=== PATIENT | female | born 2005 | race Caucasian/White ===

== ENCOUNTER 2024-08-25 07:49 | Emergency (ER) | payer MEDICAID, SELFPAY ==
[2024-08-25 07:50] VITALS: BMI 20.5
--- NOTE | 2024-08-25 08:02 | PD.EDRME ---
Rapid Medical Screening Exam RME Arrival date/time: 08/25/24 07:49 19-year-old female presents to the emergency department with complaints of epigastric abdominal pain x 1 day. I have greeted and performed a focused initial assessment of this patient. Initial appropriate labs ordered at this time. A comprehensive ED assessment and evaluation of the patient and analysis of all test and completion of medical decision making process will be conducted by additional ED provider. Chief Complaint: Abdominal Pain Time Seen by Provider: 08/25/24 07:54
--- NOTE | 2024-08-25 08:04 | XR_ITS ---
Examination: Abdomen sonogram, Limited Date and time of exam: August 25, 2024 0839 hrs. Indications: Epigastric pain and vomiting onset today Technique: Real-time mars scale transabdominal sonographic images of the upper abdomen obtained. Findings: Normal gallbladder Normal common bile duct 0.3 cm Pancreatic head 1.9 cm Liver normal size fatty infiltration Normal hepatopedal portal venous flow Patent IVC Impression: Normal gallbladder Fatty liver
[2024-08-25 08:06] VITALS: BP 125/64; PULSE 100; RESP 19; TEMP 36.4; O2SAT 98
[2024-08-25] MEDS: FAMOTIDINE 20 MG TABLET 40 MG PO (08:19)
[2024-08-25] MEDS: MG HYD/AL HYD/SIME (Maalox Reg) SUSP 30 ML UDC PO (08:20)
[2024-08-25] MEDS: LIDOCAINE VISCOUS 2% 15 ML UDC PO (08:20)
[2024-08-25 09:32] LABS: Collection Type, Urine Clean Catch
[2024-08-25 09:46] LABS: Basophils # (Auto) 0.1 Thou/mm3 (0.0-0.2); Basophils % (Auto) 1 % (0-2.5); Eosinophils % (Auto) 0 % (0-10); Hematocrit 42.9 % (36.0-46.0); Immature Granulocytes % (Auto) 1 % (0-0); Immature Granulocytes Auto 0.05 Thou/mm3 (0.00-0.00); Lymphocytes # (Auto) 0.5 Thou/mm3 (1.0-4.8); Lymphocytes % (Auto) 4 % (10-50); Mean Corpuscular Hemoglobin 35.7 pg (25.0-35.0); Mean Corpuscular Volume 102 fL (80-100); Monocytes # (Auto) 0.4 Thou/mm3 (0.0-0.8); Monocytes % (Auto) 3 % (0-12); Neutrophils # (Auto) 10.1 Thou/mm3 (1.8-7.7); Neutrophils % (Auto) 91 % (37-80); Nucleated Red Blood Cell % 0 /100 WBC (0); Platelet Count 242 Thou/mm3 (140-440); RDW Standard Deviation 47.9 fL (36.4-46.3); White Blood Count 11.1 Thou/mm3 (4.5-11.0)
[2024-08-25 09:50] LABS: Bilirubin,Urine Negative (Negative); Blood,Urine Trace (Negative); Clarity,Urine Clear (Clear/Hazy); Color,Urine Yellow (Lt Yel-Yel); Glucose, Urine Negative (Negative); Ketones,Urine 4+ (Negative); Leukocyte Esterase,Urine Negative (Negative); Nitrite,Urine Negative (Negative); PH,Urine 6.5 (5.0-7.0); Protein,Urine 3+ (Neg - Trace); RBC,Urine 3 /hpf (0-3); Specific Gravity,Urine 1.026 (1.001-1.035); Squamous Epithelial Cell,Urine < 1 /hpf (0-5); Urobilinogen,Urine Negative mg/dL (0.0-1.0); WBC,Urine 1 /hpf (0-5)
[2024-08-25 09:57] LABS: Alanine Aminotransferase 133 U/L (10-49); Albumin, Serum 5.5 gm/dL (3.5-5.0); Albumin/Globulin Ratio 2.1 (1.2-2.2); Alcohol, Blood Medical 248.4 mg/dL (0-10.0); Alkaline Phosphatase 69 U/L (46-116); Anion Gap 23 (7-16); Aspartate Amino Transferase 252 U/L (0-34); BUN/Creatinine Ratio 9 Ratio (12-20); Bilirubin,Total 1.3 mg/dL (0.3-1.2); Blood Urea Nitrogen 6 mg/dL (9-23); Calcium 10.3 mg/dL (8.3-10.6); Calcium (Corrected) 10.3 mg/dL (8.5-10.1); Carbon Dioxide 20.2 mMol/L (20.0-31.0); Chloride 100 mMol/L (98-107); Creatinine (Component) 0.7 mg/dL (0.6-1.3); Estimated Creatinine Clearance 110.2 mL/min (>60); Globulin 2.6 gm/dL (2.3-3.5); Glucose 123 mg/dL (74-106); Lipase 33 U/L (12-53); Osmolality,Calculated 283 (275-295); Potassium 3.7 mMol/L (3.4-5.1); Sodium 143 mMol/L (136-145); Total Protein 8.1 gm/dL (5.7-8.2); eGFR > 60 See Note
[2024-08-25 10:01] LABS: HCG Qualitative,Urine Negative
[2024-08-25 10:13] LABS: Amphetamine/Methamp Scrn,U Negative (Negative); Barbiturate Screen,Urine Negative (Negative); Benzodiazepines Screen,Urine Negative (Negative); Benzoylecgonine Screen, Ur Negative (Negative); Fentanyl Screen,Urine Negative (Negative); Opiate Screen,Urine Negative (Negative); THC Screen,Urine Positive (Negative)
--- NOTE | 2024-08-25 10:43 | EDNOTE_ITS ---
ED Alcohol RME/HPI General Chief Complaint: Abdominal Pain Stated Complaint: UPPER ABD PAIN WITH VOMITING Time Seen by Provider: 08/25/24 07:54 Arrival date/time: 08/25/24 07:49 RME / HPI RME / HPI narrative: 08/25/24 07:49 19-year-old female presents to the emergency department with complaints of epigastric abdominal pain x 1 day. I have greeted and performed a focused initial assessment of this patient. Initial appropriate labs ordered at this time. A comprehensive ED assessment and evaluation of the patient and analysis of all test and completion of medical decision making process will be conducted by additional ED provider. DR NYLA LYNCH ED EVALUATION Patient is a 19 year old female presenting to the ED complaining of nausea,vomiting and abdominal pain since last night. Patient endorses arijuana and heavy alcohol use last night. Denies fevers, chills, diarrhea, constipation, urinary symptoms. Patient does not rate or describe pain at this time. Denies further medical history at this time. Related Data Previous Rx's ?Medication ?Instructions ?Recorded ondansetron HCl 4 mg tablet 4 mg PO Q6H #30 tabs 11/07/20 (Zofran) ondansetron 4 mg disintegrating 4 mg PO Q8H PRN nausea and 05/24/22 tablet vomiting #14 tabs Allergies Allergy/AdvReac Type Severity Reaction Status Date / Time No Known Allergies Allergy Verified 08/25/24 07:51 Review of Systems Review of Systems Narrative Review of Systems: Gen: No fever, no chills, no weight loss EYES: No discharge, no visual changes, no pain HEENT: No ear pain, no congestion, no sore throat PULM: No shortness of breath, no cough, no congestion CV: No chest pain, no dyspnea on exertion, no palpitations GI: +nausea, vomiting, abdominal pain. no diarrhea, no constipation : No frequency, no urgency, no dysuria Musc/skel: No joint pain, no back pain Skin: No rash Psyc: No hallucinations, no depression Heme/Lymph: No easy bleeding or bruising tendencies Neuro: No weakness, no headache Past Medical History Past Medical History CARDIAC: Negative Cardiac Disorders RESPIRATORY: Negative Asthma GENITOURINARY: Negative Renal Disease ENDOCRINE: Negative Diabetes Mellitus Type 2 HEMATOLOGIC: Negative Sickle Cell Disease Social History SMOKING STATUS: Never smoker SUBSTANCE USE: marijuana (quit smoking 2 weeks ago) ED Exam Narrative Physical exam: GEN. APPEARANCE: The patient is alert awake oriented X-3 in minimal distress, generalized fine tremors. Patient is cooperative. VITALS: All vitals were reviewed and the pulse ox is 98% on room air which is normal according to my interpretation. HEENT: Normocephalic, atraumatic. Pupils are equal and reactive. Oral mucosa is moist. Patent Nares NECK: Supple, nontender, no thyromegaly, no meningismus, no JVD, no step offs CHEST: Symmetrical, atraumatic, and with equal expansion , Nontender on palpation no deformity and no crepitus. CARDIOVASCULAR: Heart regular rhythm no murmur or gallop rub or extra beats. LUNGS: Clear to auscultation bilaterally with symmetrical chest rise. No laboring tachypnea or wheezing. No intercostal subcostal retraction. No rales and no rhonchi. ABDOMEN: Soft, flat, nontender to palpation, no guarding or rebound tenderness. There are no abnormal masses palpated. Active and normal bowel sounds. EXTREMITIES: Nontender. No edema. No cyanosis. Patient is able to move all 4 extremities well, with full ROM and good CSM. SKIN: Warm and dry, no jaundice or rashes noted. MUSCULOSKELETAL: No lubar or midline bony tenderness. There is no CVA tenderness. No paraspinal muscle spasm or tenderness. NEURO: Patient is LOZANO x 4, Cranial nerves II through XII grossly intact. There is no focal neurologic deficits noted. GCS is 15, PNS and [employer] appear grossly intact. PSYCHIATRIC: Patient is in normal mood and affect, cooperative, no SI or HI or hallucinations. Course Quality Measures none Orders Category Date Time Status US gall bladder Stat Exams 08/25/24 08:04 Completed Alcohol, Blood Medical Stat Lab 08/25/24 09:17 Completed CBC Stat Lab 08/25/24 09:17 Completed Comprehensive Metabolic Panel Stat Lab 08/25/24 09:17 Completed Drug Screen,Urine Stat Lab 08/25/24 09:25 Completed HCG Qualitative,Urine Stat Lab 08/25/24 09:25 Completed Lipase Stat Lab 08/25/24 09:17 Completed Urinalysis Stat Lab 08/25/24 09:25 Completed Famotidine [Pepcid] Med 08/25/24 08:04 Discontinued 40 mg PO X1 ONE Lidocaine 2% Viscous [Xylocaine 2% Viscous] Med 08/25/24 08:02 Discontinued 15 ml PO X1 ONE Ondansetron Inj [Zofran Inj] Med 08/25/24 10:38 Discontinued 4 mg IV X1 ONE Sodium Chloride 0.9% 1000 ml [Ns] 1,000 ml Med 08/25/24 10:38 Discontinued IV 999 mls/hr Sodium Chloride 0.9% 1000 ml [Ns] 1,000 ml Med 08/25/24 10:40 Discontinued IV 999 mls/hr mg Hyd/Al Hyd/Roman Susp [Maalox Susp] Med 08/25/24 08:02 Discontinued 30 ml PO X1 ONE Vital Signs Vital signs: Vital Signs Temperature 97.6 F 08/25/24 08:06 Pulse Rate 100 08/25/24 08:06 Respiratory Rate 19 08/25/24 08:06 Blood Pressure 125/64 08/25/24 08:06 Pulse Oximetry (%) 98 08/25/24 08:06 Oxygen Delivery Method Room Air 08/25/24 08:06 Discharge Plan Plan Patient Disposition: HOME (Self Care) Prescriptions/Referrals Prescriptions/Med Rec: No Action ondansetron HCl [Zofran] 4 mg tablet 4 mg PO Q6H Qty: 30 0RF ondansetron 4 mg tablet,disintegrating 4 mg PO Q8H PRN (Reason: nausea and vomiting) Qty: 14 0RF Referrals: Maxime Rowell MD [Primary Care Provider] - In 1 week Problem List Clinical Impression: Alcohol intoxication Patient/Caregiver Discharge Instructions Education Materials: Social Drinking vs Problem Drinking, ED Alcohol Intoxication Additional Instructions: Do not drink alcohol in excess, consider stopping alcohol completely for better health. Avoid using illicit drugs. You can follow-up with your primary care doctor and or [facility] if you feel ready for alcohol and/or drug rehabilitation programs. Print Language: Greek Stand Alone Forms: [employer] Award Info., Patient Portal Info Letter Alcohol Patient data External records reviewed:: [facility] previous records Clinical information provided by:: patient Social determinants that could affect healthcare access:: alcohol use (+marijuana) Patient has the following chronic illnesses:: none How is presenting disease/condition affected by chronic disease/condition?: no chronic disease Evaluation data The following diagnostics were reviewed and interpreted by me:: lab results and radiology exam(s) Lab and/or radiology exams considered but not ordered:: none Interpretation Summary: Ordering Physician: Radha Garcia Date of Service: 08/25/24 Procedure(s): US gall bladder Accession Number(s): [id number] cc: Maxime Rowell MD; Fransico Groves MD; Radha Garcia~ Examination: Abdomen sonogram, Limited Date and time of exam: August 25, 2024 0839 hrs. Indications: Epigastric pain and vomiting onset today Technique: Real-time mars scale transabdominal sonographic images of the upper abdomen obtained. Findings: Normal gallbladder Normal common bile duct 0.3 cm Pancreatic head 1.9 cm Liver normal size fatty infiltration Normal hepatopedal portal venous flow Patent IVC Impression: Normal gallbladder Fatty liver Dictated By: Fransico Groves MD Signed By: <Electronically signed by Fransico Groves MD in OV> 08/25/24 1126 Medications / Prescriptions Medications or Prescriptions considered but not ordered:: none Medication administrations:: Medication Administration History Discontinued Medications Al Hydrox/Mg Hydrox/Simethicone (Mg Hyd/Al Hyd/Roman (Maalox Reg) Susp 30 Ml Udc) 30 ml PO X1 ONE Stop: 08/25/24 08:03 Last Admin: 08/25/24 08:20 Dose: 30 ml Documented By: Stella Famotidine (Famotidine 20 Mg Tablet) 40 mg PO X1 ONE Stop: 08/25/24 08:05 Last Admin: 08/25/24 08:19 Dose: 40 mg Documented By: Stella Sodium Chloride (Ns) 1,000 mls @ 999 mls/hr IV .Q1H1M ONE Stop: 08/25/24 11:38 Last Infusion: 08/25/24 12:05 Dose: Infused Documented By: Admin: 08/25/24 10:55 Dose: 999 mls/hr Documented By: Sodium Chloride (Ns) 1,000 mls @ 999 mls/hr IV .Q1H1M ONE Stop: 08/25/24 11:40 Last Infusion: 08/25/24 12:05 Dose: Infused Documented By: Admin: 08/25/24 10:56 Dose: 999 mls/hr Documented By: Lidocaine HCl (Lidocaine Viscous 2% 15 Ml Udc) 15 ml PO X1 ONE Stop: 08/25/24 08:03 Last Admin: 12/01/24 08:20 Dose: 15 ml Documented By: [facility] Ondansetron HCl (Ondansetron Inj 2 Mg/Ml Inj 2 Ml) 4 mg IV X1 ONE; Protocol Stop: 08/25/24 10:39 Last Admin: 08/25/24 10:55 Dose: 4 mg Documented By: GM see above Consultations Consultation(s) initiated? (list below): No Diagnosis Differential diagnosis alcohol: other (alcohol intoxication, pancreatitis, alcohol induced gastritis.) Most likely diagnosis given after review of the tests above:: alcohol intoxication Admission Indicated Admission indicated?: not indicated Admission Request Was there a request for admission?: No Disposition Plan Disposition Plan: Discharge Discharge Attestation Discharge Attestation: The patient and all family members were given an opportunity to ask questions and understood the discharge instructions. Discharge instructions specifically effects, indications for sooner follow up or return to the emergency department, and the expected course of current diagnosis. Patient condition: Stable
[2024-08-25] MEDS: SODIUM CHLORIDE 0.9% 1000 ML 1,000 ML 999 ML IV ×2 (10:55→10:56)
[2024-08-25] MEDS: ONDANSETRON INJ 2 MG/ML INJ 2 ML 4 MG IV (10:55)
[2024-08-25 10:59] VITALS: BP 120/83; PULSE 102; RESP 17; TEMP 36.9; O2SAT 97
[2024-08-25 12:06] VITALS: BP 110/76; PULSE 115; RESP 18; TEMP 36.8; O2SAT 99
--- NOTE | 2024-08-25 12:07 | PC.NURSE ---
Addendum entered by Wesley Agrawal RN 08/25/24 14:23: @1217- Dr. Miller made aware that pt's HR before discharge is 115; per Dr. Miller, pt ok to be discharged at this time. Original Note: Dr. Gant
== END 2024-08-25 12:17 | disposition home or self-care (01) ==
PROVIDERS: Nurse Practitioner Primary Care; Emergency Provider Emergency Medicine; PCP Family Medicine; Referring Provider Emergency Medicine
DX: F10.129 Alcohol abuse with intoxication, unspecified (principal); K76.0 Fatty (change of) liver, not elsewhere classified; Y90.8 Blood alcohol level of 240 mg/100 ml or more
CPT/HCPCS: 36415; 76705; 80053; 80307; 80320; 81001; 81025; 83690; 85025; 96361; 96374; 99284; J2405; J3490; J7030; A9270; G0480